=== PATIENT | male | born 1965 | race Caucasian/White ===

== ENCOUNTER 2024-04-12 08:36 | Outpatient (CLI) | payer OTHER, SELFPAY ==
--- NOTE | ~2024-04-12 | US_ITS ---
Limited Abdominal Sonogram: Real-time sonographic imaging of the right upper quadrant was performed. Clinical History: Abdominal pain Findings: The liver appears echogenic, with no evidence of mass lesion or bile duct dilatation. Main portal vein demonstrates normal direction of flow. The gallbladder is well distended, and appears no rmal with no evidence of gallstone or wall thickening. The common bile duct measures 5 mm. The visua lized pancreas, aorta, and IVC are unremarkable. Right renal cyst noted measuring 2.9 cm per Impression: Diffuse fatty infiltration of liver. Reviewed, dictated and finalized at location . Impression: Diffuse fatty infiltration of liver.
== END 2024-04-12 08:37 | disposition home or self-care (01) ==
PROVIDERS: PCP Nurse Practitioner Family; Visit Provider Nurse Practitioner Family
DX: R10.11 Right upper quadrant pain (principal); K76.0 Fatty (change of) liver, not elsewhere classified
CPT/HCPCS: 76705

== ENCOUNTER 2024-11-10 08:44 | Emergency (ER) | payer BC, SELFPAY ==
--- NOTE | ~2024-11-10 | XR_ITS ---
EXAMINATION: XR foot RT min 3V DATE: 11/10/2024 09:45 INDICATION: Right foot swelling and erythema around the dose TECHNIQUE: Dorsoplantar, two oblique and lateral views of the right foot were obtained. COMPARISON: None. FINDINGS: Mild hallux valgus and bunion with mild hypertrophic and cystic change along the medial margin of the head of the first metatarsal. Bone alignment is otherwise normal. No fracture. Mild polyarticular os teoarthritis involving the first metatarsophalangeal and multiple tarsometatarsal and interphalangeal joints. No cortical erosions or periosteal reaction. Moderate-sized Achilles and plantar calcaneal s purs. Diffuse soft tissue swelling about the forefoot and over the dorsolateral aspect of the mid and hindfoot. IMPRESSION: 1. No acute osseous abnormality. 2. Mild hallux valgus with bunion. 3. 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 Reviewed, dictated and finalized at location A.
[2024-11-10 08:55] VITALS: BP 144/98; PULSE 74; RESP 18; TEMP 36.4; O2SAT 98
--- OUTSIDE RECORDS SUMMARY | 2024-11-10 09:23 | XMS_ITS | Data Portability ---
Author Organization [place] [facility], Main Office Address [address] [place] [address] Assessment Encounter Date Assessment Date Assessment LastModified by Organization Details LastModified Time 03/05/2023 03/05/2023 Cscope- in 2014, we have requested records multiple times but they have not sent them- per pt he is due in 2024 PSA- 08/2021 - ordered Call office if worse, ER if life threatening illness RTC 6 months and PRN He voices understanding of plan and agrees [email or web address] Not available 03/05/2023 16:47:18 Plan of Treatment Reminders Order Date Submit Date Provider Last Modified By Organization Details Last Modified Time Details Appointments None recorded. Lab PSA, serum or plasma 2022 023 [email or web address] [facility], [address], [place], [address], 4 08:40:02 CBC w/ auto diff 2022 023 [email or web address] [facility], [address], [place], [address], 4 08:40:02 CMP, serum or plasma 2022 023 [email or web address] [facility], [address], [place], [address], 4 08:40:02 lipid panel, serum 2022 023 [email or web address] [facility], [address], [place], [address], 4 08:40:02 Referral None recorded. Procedures None recorded. Surgeries None recorded. Imaging None recorded. Medication Orders losartan 50 mg tablet 2022 023 [facility] [address] [place], [address], 3 15:04:33 hydrochloro thiazide 25 mg tablet 2022 023 [facility] [address] [place], [address], 3 15:04:35 Patient TargetsNo targets recorded. Patient InstructionsNo instructions recorded. Reason for Referral None Reported. Results Created Date Observation Date Name Description Value Unit Range Abnormal Flag Note LastModifiedBy Organization Detail LastModifiedTime 09/13/19 22 09/12/2021 VITAM IN D 25-HY DROXY vd25oh 51.0 NG/mL 30-100 Vitam in D Statu s: Defic ient: <20 ng/mL Insuf ficie nt: 20-29 ng/mL Suffi cient : 30-10 0 ng/mL Not Available [facility] (Lab) [address] [place], [address], 09/12/2021 21:35:09 09/13/19 22 09/12/2021 HEMOG LOBIN A1C HA1C 5.6 % 4.0-6. 0 Diabe fidel Scree masha Crite gely: <5.7% Consi stent with absen ce of diabe fidel 5.7-6 .4% Consi stent with incre ased risk for diabe fidel (pred iabet es) >OR=6 .5% Consi stent with diabe fidel REFER ENCE: Diabe fidel Care 2016, 39(Hilliard ppl.1 ):s13 -s22 Not Available [facility] (Lab) [address] [place], [address], 09/12/2021 20:21:45 09/13/19 22 09/12/2021 PSA SCREE N PSA medicare screen 1.13 NG/mL 0.00-4 .00 Not Available [facility] (Lab) [address] [place], [address], 09/12/2021 19:55:50 09/13/1909/12/2021 TSH thyroid-stim ulating hormone 1.400 uIU/m L 0.465- 4.680 Not Available [facility] (Lab) [address] [place], [address], 09/12/2021 19:55:42 09/13/1909/12/2021 T4 FREE free T4 1.12 NG/dL 0.78-2 .19 Not Available [facility] (Lab) [address] [place], [address], 09/12/2021 19:52:32 09/13/19 22 09/12/2021 LIPID PANEL cholesterol 174 mg/dL 140-19 9 NIH GELACIO NSUS RECOM MENDA TION FOR ROBERT STERO L: ADULT CHILD LOW RISK: <200 <170 BORDE RLINE : <200- 239 ----- HIGH RISK: >240 >200 Not Available [facility] (Lab) [address] [place], [address], 09/12/2021 19:15:19 09/13/1909/12/2021 LIPID PANEL triglyceride s 113 mg/dL 0-150 NIH GELACIO NSUS REPOR T RECOM MENDA TION FOR TRIGL YCERI ANA CRISTINA: ADULT CHILD LOW RISK: <150 ----- BODER LINE: 150-1 99 ----- HIGH RISK: >200 ----- Not Available [facility] (Lab) [address] [place], [address], 09/12/2021 19:15:19 09/13/1909/12/2021 LIPID PANEL HDL cholesterol 54 mg/dL 40- Not Available [facility] (Lab) [address] [place], [address], 09/12/2021 19:15:19 09/13/19 22 09/12/2021 LIPID PANEL LDL cholesterol, calculated 97 mg/dL 0-130 NIH GELACIO NSUS REPOR T RECOM MENDA TIONS FOR LDL: ADULT CHILD LOW RISK <130 <110 (OPTI MAL LDL) <100 ----- BORDE RLINE : 130-1 59 ----- HIGH RISK: >160 >130 A TRIGL YCERI DE RESUL T >400 INVAL IDATE S THE CALCU LATIO N FOR LDL FRACT IONAT ION - THE LDL RESUL T WILL NOT BE REPOR AMI. Not Available [facility] (Lab) [address] [place], [address], 09/12/2021 19:15:19 09/13/19 22 09/12/2021 COMPR EHENS MAINE METAB OLIC PANEL sodium 137 mmol/ L 137-14 5 Not Available [facility] (Lab) [address] [place], [address], 09/12/2021 19:15:17 09/13/19 22 09/12/2021 COMPR EHENS MAINE METAB OLIC PANEL potassium 4.0 mmol/ L 3.5-5. 1 Not Available [facility] (Lab) [address] [place], [address], 09/12/2021 19:15:17 09/13/19 22 09/12/2021 COMPR EHENS MAINE METAB OLIC PANEL chloride 101 mmol/ L 98-107 Not Available [facility] (Lab) [address] [place], [address], 09/12/2021 19:15:17 09/13/19 22 09/12/2021 COMPR EHENS MAINE METAB OLIC PANEL carbon dioxide 26 mmol/ L 22-30 Not Available [facility] (Lab) [address] [place], [address], 09/12/2021 19:15:17 09/13/19 22 09/12/2021 COMPR EHENS MAINE METAB OLIC PANEL agap 14.0 mmol/ L 14-22 Not Available [facility] (Lab) [address] [place], [address], 09/12/2021 19:15:17 09/13/19 22 09/12/2021 COMPR EHENS MAINE METAB OLIC PANEL glucose 103 mg/dL 70-99 high Not Available [facility] (Lab) [address] [place], [address], 09/12/2021 19:15:17 09/13/19 22 09/12/2021 COMPR EHENS MAINE METAB OLIC PANEL BUN 12 mg/dL 8-19 Not Available [facility] (Lab) [address] [place], [address], 09/12/2021 19:15:17 09/13/19 22 09/12/2021 COMPR EHENS MAINE METAB OLIC PANEL creatinine 0.78 mg/dL 0.66-1 .25 Not Available [facility] (Lab) [address] [place], [address], 09/12/2021 19:15:17 09/13/19 22 09/12/2021 COMPR EHENS MAINE METAB OLIC PANEL GFR >60 Refer ence Range : [facility] ge GFR Healt hy Adult : >60 mL/mi n/1.7 3 m2 Chron ic Kidne y Disea se: 15-60 mL/mi n/1.7 3 m2 Kidne y Failu re: <15/m L/min /1.73 m2 www.n iddk. nih.g ov The MDRD study equat ion has not been valid ated in child soy <18 years of age; pregn ant women ; the elder ly >85 years of age; or in some racia l or ethni c subgr oups, such as Hispa nics. Outsi de the valid ated vamsi eters , estim ated GFR is less accur ate, requi ring clini joyce judgm ent on a case- by-ca se basis . Clini joyce inter preta tion for other races and ages must be made by the clini sharifa. The MDRD study equat ion has not been valid ated for the evalu ation of serum creat inine relat ed to nutri radha l statu s or medic ation usage . For perso ns <18 years of age, a pedia tric GFR calcu latmarck is avail able on the [facility] websi te: https ://guillermo gomez.o rg/pr ofess ional s/kdo qi/gf r_cal culat or Not Available [facility] (Lab) [address] [place], [address], 09/12/2021 19:15:17 09/13/19 22 09/12/2021 COMPR EHENS MAINE METAB OLIC PANEL alkaline phosphatase 47 U/L 38-126 Not Available [facility] (Lab) [address] [place], [address], 09/12/2021 19:15:17 09/13/19 22 09/12/2021 COMPR EHENS MAINE METAB OLIC PANEL alanine aminotransfe rase 29 U/L 0-50 Not Available [facility] (Lab) [address] [place], [address], 09/12/2021 19:15:17 09/13/19 22 09/12/2021 COMPR EHENS MAINE METAB OLIC PANEL aspartate aminotransfe rase 37 U/L 15-46 Not Available [facility] (Lab) [address] [place], [address], 09/12/2021 19:15:17 09/13/19 22 09/12/2021 COMPR EHENS MAINE METAB OLIC PANEL bilirubin, total 0.80 mg/dL 0.20-1 .30 Not Available [facility] (Lab) [address] [place], [address], 09/12/2021 19:15:17 09/13/19 22 09/12/2021 COMPR EHENS MAINE METAB OLIC PANEL calcium 9.8 mg/dL 8.4-10 .2 Not Available [facility] (Lab) [address] [place], [address], 09/12/2021 19:15:17 09/13/19 22 09/12/2021 COMPR EHENS MAINE METAB OLIC PANEL total protein 7.6 g/dL 6.3-8. 2 Not Available [facility] (Lab) [address] [facility] [place], [address], 09/12/2021 19:15:17 09/13/19 22 09/12/2021 COMPR EHENS MAINE METAB OLIC PANEL albumin 4.9 g/dL 3.4-5. 0 Not Available [facility] (Lab) [address] [place], [address], 09/12/2021 19:15:17 09/13/19 22 09/12/2021 COMPR EHENS MAINE METAB OLIC PANEL globulin 2.7 g/dL 2.6-4. 2 Not Available [facility] (Lab) [address] [place], [address], 09/12/2021 19:15:17 09/13/19 22 09/12/2021 COMPR EHENS MAINE METAB OLIC PANEL A/G ratio 1.8 ratio 1.0-2. 0 Not Available [facility] (Lab) [address] [place], [address], 09/12/2021 19:15:17 09/13/19 22 09/12/2021 URINA LYSIS COMPL ETE/I RIS W/RFX color colorl ess Not Available [facility] (Lab) [address] [place], [address], 09/12/2021 18:46:24 09/13/19 22 09/12/2021 URINA LYSIS COMPL ETE/I RIS W/RFX appear clear Not Available [facility] (Lab) [address] [place], [address], 09/12/2021 18:46:24 09/13/19 22 09/12/2021 URINA LYSIS COMPL ETE/I RIS W/RFX specific gravity 1.004 1.001- 1.030 Not Available [facility] (Lab) [address] [place], [address], 09/12/2021 18:46:24 09/13/19 22 09/12/2021 URINA LYSIS COMPL ETE/I RIS W/RFX pH 7.0 pH_un its 5.0-9. 0 Not Available [facility] (Lab) [address] [place], [address], 09/12/2021 18:46:24 09/13/19 22 09/12/2021 URINA LYSIS COMPL ETE/I RIS W/RFX leukocytes negati ve amrit/u L negati ve- Not Available [facility] (Lab) [address] [place], [address], 09/12/2021 18:46:24 09/13/19 22 09/12/2021 URINA LYSIS COMPL ETE/I RIS W/RFX nitrite negati ve negati ve- Not Available [facility] (Lab) [address] [place], [address], 09/12/2021 18:46:24 09/13/19 22 09/12/2021 URINA LYSIS COMPL ETE/I RIS W/RFX protein negati ve mg/dL negati ve- Not Available [facility] (Lab) [address] [place], [address], 09/12/2021 18:46:24 09/13/19 22 09/12/2021 URINA LYSIS COMPL ETE/I RIS W/RFX glucose normal mg/dL normal - Not Available [facility] (Lab) [address] [place], [address], 09/12/2021 18:46:24 09/13/19 22 09/12/2021 URINA LYSIS COMPL ETE/I RIS W/RFX ketones negati ve mg/dL negati ve- Not Available [facility] (Lab) [address] [place], [address], 09/12/2021 18:46:24 09/13/19 22 09/12/2021 URINA LYSIS COMPL ETE/I RIS W/RFX urobilinogen normal mg/dL normal - Not Available [facility] (Lab) [address] [place], [address], 09/12/2021 18:46:24 09/13/19 22 09/12/2021 URINA LYSIS COMPL ETE/I RIS W/RFX bilirubin negati ve mg/dL negati ve- Not Available [facility] (Lab) [address] [place], [address], 09/12/2021 18:46:24 09/13/19 22 09/12/2021 URINA LYSIS COMPL ETE/I RIS W/RFX blood negati ve mg/dL negati ve- Not Available [facility] (Lab) [address] [place], [address], 09/12/2021 18:46:24 09/13/19 22 09/12/2021 URINA LYSIS COMPL ETE/I RIS W/RFX white blood cells none /i??h pfi?? 0-8 Not Available [facility] (Lab) [address] [place], [address], 09/12/2021 18:46:24 09/13/19 22 09/12/2021 URINA LYSIS COMPL ETE/I RIS W/RFX red blood cells none /i??h pfi?? 0-4 Not Available [facility] (Lab) [address] [place], [address], 09/12/2021 18:46:24 09/13/19 22 09/12/2021 URINA LYSIS COMPL ETE/I RIS W/RFX bacteria none Not Available [facility] (Lab) [address] [place], [address], 09/12/2021 18:46:24 09/13/19 22 09/12/2021 URINA LYSIS COMPL ETE/I RIS W/RFX squamous epithelial none /i??l pfi?? Not Available [facility] (Lab) [address] [place], [address], 09/12/2021 18:46:24 09/13/19 22 09/12/2021 CBC/C OMPLE TE BLD COUNT W/DIF F white blood cells 5.9 x10'3 /uL 4.2-10 .8 Not Available [facility] (Lab) [address] [place], [address], 09/12/2021 18:30:34 09/13/19 22 09/12/2021 CBC/C OMPLE TE BLD COUNT W/DIF F red blood cells 5.56 x10'6 /uL 4.10-5 .80 Not Available [facility] (Lab) [address] [place], [address], 09/12/2021 18:30:34 09/13/19 22 09/12/2021 CBC/C OMPLE TE BLD COUNT W/DIF F hemoglobin 16.5 g/dL 13.2-1 7.0 Not Available [facility] (Lab) [address] [place], [address], 09/12/2021 18:30:34 09/13/19 22 09/12/2021 CBC/C OMPLE TE BLD COUNT W/DIF F hematocrit 47.5 % 39.3-5 0.0 Not Available [facility] (Lab) [address] [place], [address], 09/12/2021 18:30:34 09/13/19 22 09/12/2021 CBC/C OMPLE TE BLD COUNT W/DIF F mean red cell volume 85.4 fL 80.0-9 7.0 Not Available [facility] (Lab) [address] [place], [address], 09/12/2021 18:30:34 09/13/19 22 09/12/2021 CBC/C OMPLE TE BLD COUNT W/DIF F mean red cell hemoglobin 29.7 pg 27.0-3 3.0 Not Available [facility] (Lab) [address] [place], [address], 09/12/2021 18:30:34 09/13/19 22 09/12/2021 CBC/C OMPLE TE BLD COUNT W/DIF F mean RBC HGB concentratio n 34.7 g/dL 31.0-3 6.0 Not Available [facility] (Lab) [address] [place], [address], 09/12/2021 18:30:34 09/13/19 22 09/12/2021 CBC/C OMPLE TE BLD COUNT W/DIF F red cell distribution width 13.0 % 11.8-1 5.5 Not Available [facility] (Lab) [address] [place], [address], 09/12/2021 18:30:34 09/13/19 22 09/12/2021 CBC/C OMPLE TE BLD COUNT W/DIF F platelets 248 x10'3 /uL 150-40 0 Not Available [facility] (Lab) [address] [place], [address], 09/12/2021 18:30:34 09/13/19 22 09/12/2021 CBC/C OMPLE TE BLD COUNT W/DIF F mean platelet volume 9.2 fL 9.0-12 .4 Not Available [facility] (Lab) [address] [place], [address], 09/12/2021 18:30:34 09/13/19 22 09/12/2021 CBC/C OMPLE TE BLD COUNT W/DIF F neutrophils 55.7 % 39.0-7 2.0 Not Available [facility] (Lab) [address] [place], [address], 09/12/2021 18:30:34 09/13/19 22 09/12/2021 CBC/C OMPLE TE BLD COUNT W/DIF F lymphocytes 28.8 % 16.0-4 7.0 Not Available [facility] (Lab) [address] [place], [address], 09/12/2021 18:30:34 09/13/19 22 09/12/2021 CBC/C OMPLE TE BLD COUNT W/DIF F monocytes 10.5 % 5.0-12 .0 Not Available [facility] (Lab) [address] [place], [address], 09/12/2021 18:30:34 09/13/19 22 09/12/2021 CBC/C OMPLE TE BLD COUNT W/DIF F eosinophils 3.4 % 1.0-7. 0 Not Available [facility] (Lab) [address] [place], [address], 09/12/2021 18:30:34 09/13/19 22 09/12/2021 CBC/C OMPLE TE BLD COUNT W/DIF F basophils 1.4 % 0.0-2. 0 Not Available [facility] (Lab) [address] [place], [address], 09/12/2021 18:30:34 09/13/19 22 09/12/2021 CBC/C OMPLE TE BLD COUNT W/DIF F immature granulocytes 0.2 % 0.00-0 .50 Not Available [facility] (Lab) [address] [place], [address], 09/12/2021 18:30:34 09/13/19 22 09/12/2021 CBC/C OMPLE TE BLD COUNT W/DIF F neutrophils, absolute count 3.29 x10'3 /uL 1.5-8. 0 Not Available [facility] (Lab) [address] [place], [address], 09/12/2021 18:30:34 09/13/19 22 09/12/2021 CBC/C OMPLE TE BLD COUNT W/DIF F lymphocytes, absolute count 1.70 x10'3 /uL 1.07-3 .43 Not Available [facility] (Lab) [address] [place], [address], 09/12/2021 18:30:34 09/13/19 22 09/12/2021 CBC/C OMPLE TE BLD COUNT W/DIF F monocytes, absolute count 0.62 x10'3 /uL 0.29-0 .99 Not Available [facility] (Lab) [address] [place], [address], 09/12/2021 18:30:34 09/13/19 22 09/12/2021 CBC/C OMPLE TE BLD COUNT W/DIF F eosinophils, absolute count 0.20 x10'3 /uL 0.02-0 .53 Not Available [facility] (Lab) [address] [place], [address], 09/12/2021 18:30:34 09/13/19 22 09/12/2021 CBC/C OMPLE TE BLD COUNT W/DIF F basophils, absolute count 0.08 x10'3 /uL 0.01-0 .08 Not Available [facility] (Lab) [address] [place], [address], 09/12/2021 18:30:34 09/13/19 22 09/12/2021 CBC/C OMPLE TE BLD COUNT W/DIF F immature granulocytes ,absolute 0.01 x10'3 /uL 0.00-0 .05 Not Available [facility] (Lab) [address] [place], [address], 09/12/2021 18:30:34 09/13/19 22 09/12/2021 CBC/C OMPLE TE BLD COUNT W/DIF F nucleated red blood cells 0.0 % -0 Not Available [facility] (Lab) [address] [place], [address], 09/12/2021 18:30:34 09/13/19 22 09/12/2021 CBC/C OMPLE TE BLD COUNT W/DIF F NRBC# 0.00 x10'3 /uL Not Available [facility] (Lab) [address] [place], [address], 09/12/2021 18:30:34 08/07/19 23 08/07/2022 FOLAT E, SERUM /PLAS MA folate 8.42 NG/mL 2.76-2 0.0 Not Available [facility] (Lab) [address] [place], [address], 08/07/2022 15:44:23 08/07/1908/07/2022 VITAM IN B12 (KIT ANDREE ) vb12 229 pg/mL 239-93 1 low Not Available [facility] (Lab) [address] [place], [address], 08/07/2022 15:44:17 08/07/1908/07/2022 VITAM IN D 25-HY DROXY vd25oh 33.8 NG/mL 30-100 Vitam in D Statu s: Defic ient: <20 ng/mL Insuf ficie nt: 20-29 ng/mL Suffi cient : 30-10 0 ng/mL Not Available [facility] (Lab) [address] [place], [address], 08/07/2022 15:43:47 08/07/1908/07/2022 HEMOG LOBIN A1C HA1C 6.4 % 4.0-6. 0 high Diabe fidel Keniae masha Crite gely: <5.7% Consi stent with absen ce of diabe fidel 5.7-6 .4% Consi stent with incre ased risk for diabe fidel (pred iabet es) >OR=6 .5% Consi stent with diabe fidel REFER ENCE: Diabe fidel Care 2016, 39(Hilliard ppl.1 ):s13 -s22 Not Available [facility] (Lab) [address] [place], [address], 08/07/2022 15:24:26 08/07/19 23 08/07/2022 TSH thyroid-stim ulating hormone 1.470 uIU/m L 0.465- 4.680 Not Available [facility] (Lab) [address] [place], [address], 08/07/2022 14:32:39 08/07/19 23 08/07/2022 URINA LYSIS COMPL ETE/I RIS W/RFX color light- yellow Not Available [facility] (Lab) [address] [place], [address], 08/07/2022 14:20:51 08/07/19 23 08/07/2022 URINA LYSIS COMPL ETE/I RIS W/RFX appear clear Not Available [facility] (Lab) [address] [place], [address], 08/07/2022 14:20:51 08/07/19 23 08/07/2022 URINA LYSIS COMPL ETE/I RIS W/RFX specific gravity 1.012 1.001- 1.030 Not Available [facility] (Lab) [address] [place], [address], 08/07/2022 14:20:51 08/07/19 23 08/07/2022 URINA LYSIS COMPL ETE/I RIS W/RFX pH 6.0 pH_un its 5.0-9. 0 Not Available [facility] (Lab) [address] [place], [address], 08/07/2022 14:20:51 08/07/19 23 08/07/2022 URINA LYSIS COMPL ETE/I RIS W/RFX leukocytes negati ve amrit/u L negati ve- Not Available [facility] (Lab) [address] [place], [address], 08/07/2022 14:20:51 08/07/19 23 08/07/2022 URINA LYSIS COMPL ETE/I RIS W/RFX nitrite negati ve negati ve- Not Available [facility] (Lab) [address] [place], [address], 08/07/2022 14:20:51 08/07/19 23 08/07/2022 URINA LYSIS COMPL ETE/I RIS W/RFX protein negati ve mg/dL negati ve- Not Available [facility] (Lab) [address] [place], [address], 08/07/2022 14:20:51 08/07/19 23 08/07/2022 URINA LYSIS COMPL ETE/I RIS W/RFX glucose normal mg/dL normal - Not Available [facility] (Lab) [address] [place], [address], 08/07/2022 14:20:51 08/07/19 23 08/07/2022 URINA LYSIS COMPL ETE/I RIS W/RFX ketones negati ve mg/dL negati ve- Not Available [facility] (Lab) [address] [place], [address], 08/07/2022 14:20:51 08/07/19 23 08/07/2022 URINA LYSIS COMPL ETE/I RIS W/RFX urobilinogen normal mg/dL normal - Not Available [facility] (Lab) [address] [place], [address], 08/07/2022 14:20:51 08/07/19 23 08/07/2022 URINA LYSIS COMPL ETE/I RIS W/RFX bilirubin negati ve mg/dL negati ve- Not Available [facility] (Lab) [address] [place], [address], 08/07/2022 14:20:51 08/07/19 23 08/07/2022 URINA LYSIS COMPL ETE/I RIS W/RFX blood negati ve mg/dL negati ve- Not Available [facility] (Lab) [address] [place], [address], 08/07/2022 14:20:51 08/07/19 23 08/07/2022 URINA LYSIS COMPL ETE/I RIS W/RFX white blood cells 0-8 /i??h pfi?? 0-8 Not Available [facility] (Lab) [address] [place], [address], 08/07/2022 14:20:51 08/07/19 23 08/07/2022 URINA LYSIS COMPL ETE/I RIS W/RFX red blood cells 0-4 /i??h pfi?? 0-4 Not Available [facility] (Lab) [address] [place], [address], 08/07/2022 14:20:51 08/07/19 23 08/07/2022 URINA LYSIS COMPL ETE/I RIS W/RFX bacteria none Not Available [facility] (Lab) [address] [place], [address], 08/07/2022 14:20:51 08/07/19 23 08/07/2022 URINA LYSIS COMPL ETE/I RIS W/RFX mucous occasi onal /i??l pfi?? abnormal Not Available [facility] (Lab) [address] [place], [address], 08/07/2022 14:20:51 08/07/19 23 08/07/2022 URINA LYSIS COMPL ETE/I RIS W/RFX squamous epithelial none /i??l pfi?? abnormal Not Available [facility] (Lab) [address] [place], [address], 08/07/2022 14:20:51 08/07/19 23 08/07/2022 T4 FREE free T4 1.05 NG/dL 0.78-2 .19 Not Available [facility] (Lab) [address] [place], [address], 08/07/2022 14:18:44 08/07/19 23 08/07/2022 MAGNE SIUM magnesium 1.9 mg/dL 1.6-2. 3 Not Available [facility] (Lab) [address] [place], [address], 08/07/2022 14:04:19 08/07/19 23 08/07/2022 LIPID PANEL cholesterol 174 mg/dL 140-19 9 NIH GELACIO NSUS RECOM MENDA TION FOR ROBERT STERO L: ADULT CHILD LOW RISK: <200 <170 BORDE RLINE : <200- 239 ----- HIGH RISK: >240 >200 Not Available [facility] (Lab) [address] [place], [address], 08/07/2022 14:04:15 08/07/19 23 08/07/2022 LIPID PANEL triglyceride s 239 mg/dL 0-150 high NIH GELACIO NSUS REPOR T RECOM MENDA TION FOR TRIGL YCERI ANA CRISTINA: ADULT CHILD LOW RISK: <150 ----- BODER LINE: 150-1 99 ----- HIGH RISK: >200 ----- Not Available [facility] (Lab) [address] [place], [address], 08/07/2022 14:04:15 08/07/19 23 08/07/2022 LIPID PANEL HDL cholesterol 51 mg/dL 40- Not Available [facility] (Lab) [address] [facility] [place], [address], 08/07/2022 14:04:15 08/07/19 23 08/07/2022 LIPID PANEL LDL cholesterol, calculated 75 mg/dL 0-130 NIH GELACIO NSUS REPOR T RECOM MENDA TIONS FOR LDL: ADULT CHILD LOW RISK <130 <110 (OPTI MAL LDL) <100 ----- BORDE RLINE : 130-1 59 ----- HIGH RISK: >160 >130 A TRIGL YCERI DE RESUL T >400 INVAL IDATE S THE CALCU LATIO N FOR LDL FRACT IONAT ION - THE LDL RESUL T WILL NOT BE REPOR AMI. Not Available [facility] (Lab) [address] [place], [address], 08/07/2022 14:04:15 08/07/19 23 08/07/2022 COMPR EHENS MAINE METAB OLIC PANEL sodium 139 mmol/ L 137-14 5 Not Available [facility] (Lab) [address] [place], [address], 08/07/2022 14:04:07 08/07/19 23 08/07/2022 COMPR EHENS MAINE METAB OLIC PANEL potassium 4.0 mmol/ L 3.5-5. 1 Not Available [facility] (Lab) [address] [place], [address], 08/07/2022 14:04:07 08/07/19 23 08/07/2022 COMPR EHENS MAINE METAB OLIC PANEL chloride 102 mmol/ L 98-107 Not Available [facility] (Lab) [address] [place], [address], 08/07/2022 14:04:07 08/07/19 23 08/07/2022 COMPR EHENS MAINE METAB OLIC PANEL carbon dioxide 27 mmol/ L 22-30 Not Available [facility] (Lab) [address] [place], [address], 08/07/2022 14:04:07 08/07/19 23 08/07/2022 COMPR EHENS MAINE METAB OLIC PANEL anion gap 14.0 mmol/ L 14-22 Not Available [facility] (Lab) [address] [place], [address], 08/07/2022 14:04:07 08/07/19 23 08/07/2022 COMPR EHENS MAINE METAB OLIC PANEL glucose 133 mg/dL 70-99 high Not Available [facility] (Lab) [address] [place], [address], 08/07/2022 14:04:07 08/07/19 23 08/07/2022 COMPR EHENS MAINE METAB OLIC PANEL BUN 14 mg/dL 8-19 Not Available [facility] (Lab) [address] [place], [address], 08/07/2022 14:04:07 08/07/19 23 08/07/2022 COMPR EHENS MAINE METAB OLIC PANEL creatinine 0.81 mg/dL 0.66-1 .25 Not Available [facility] (Lab) [address] [place], [address], 08/07/2022 14:04:07 08/07/19 23 08/07/2022 COMPR EHENS MAINE METAB OLIC PANEL GFR >60 Refer ence Range : [facility] ge GFR Healt hy Adult : >60 mL/mi n/1.7 3 m2 Chron ic Kidne y Disea se: 15-60 mL/mi n/1.7 3 m2 Kidne y Failu re: <15/m L/min /1.73 m2 [email or web address].g ov The MDRD study equat ion has not been valid ated in child soy <18 years of age; pregn ant women ; the elder ly >85 years of age; or in some racia l or ethni c subgr oups, such as Hispa nics. Outsi de the valid ated vamsi eters , estim ated GFR is less accur ate, requi ring clini joyce judgm ent on a case- by-ca se basis . Clini joyce inter preta tion for other races and ages must be made by the clini sharifa. The MDRD study equat ion has not been valid ated for the evalu ation of serum creat inine relat ed to nutri radha l statu s or medic ation usage . For perso ns <18 years of age, a pedia tric GFR calcu lator is avail able on the [facility] websi te: https ://ww w.kid patricia.o rg/pr ofess ional s/kdo qi/gf r_cal culat or Not Available [facility] (Lab) [address] [place], [address], 08/07/2022 14:04:07 08/07/19 23 08/07/2022 COMPR EHENS MAINE METAB OLIC PANEL alkaline phosphatase 55 U/L 38-126 Not Available [facility] (Lab) [address] [place], [address], 08/07/2022 14:04:07 08/07/19 23 08/07/2022 COMPR EHENS MAINE METAB OLIC PANEL alanine aminotransfe rase 37 U/L 0-50 Not Available [facility] (Lab) [address] [place], [address], 08/07/2022 14:04:07 08/07/19 23 08/07/2022 COMPR EHENS MAINE METAB OLIC PANEL aspartate aminotransfe rase 34 U/L 15-46 Not Available [facility] (Lab) [address] [place], [address], 08/07/2022 14:04:07 08/07/19 23 08/07/2022 COMPR EHENS MAINE METAB OLIC PANEL bilirubin, total 0.70 mg/dL 0.20-1 .30 Not Available [facility] (Lab) [address] [place], [address], 08/07/2022 14:04:07 08/07/19 23 08/07/2022 COMPR EHENS MAINE METAB OLIC PANEL calcium 9.2 mg/dL 8.4-10 .2 Not Available [facility] (Lab) [address] [place], [address], 08/07/2022 14:04:07 08/07/19 23 08/07/2022 COMPR EHENS MAINE METAB OLIC PANEL total protein 7.1 g/dL 6.3-8. 2 Not Available [facility] (Lab) [address] [place], [address], 08/07/2022 14:04:07 08/07/19 23 08/07/2022 COMPR EHENS MAINE METAB OLIC PANEL albumin 4.5 g/dL 3.4-5. 0 Not Available [facility] (Lab) [address] [place], [address], 08/07/2022 14:04:07 08/07/19 23 08/07/2022 COMPR EHENS MAINE METAB OLIC PANEL globulin 2.6 g/dL 2.6-4. 2 Not Available [facility] (Lab) [address] [place], [address], 08/07/2022 14:04:07 08/07/19 23 08/07/2022 COMPR EHENS MAINE METAB OLIC PANEL A/G ratio 1.7 ratio 1.0-2. 0 Not Available [facility] (Lab) [address] [place], [address], 08/07/2022 14:04:07 08/07/19 23 08/07/2022 CBC/C OMPLE TE BLD COUNT W/DIF F white blood cells 5.8 x10'3 /uL 4.2-10 .8 Not Available [facility] (Lab) [address] [place], [address], 08/07/2022 12:48:22 02/15/20 23 08/07/2022 CBC/C OMPLE TE BLD COUNT W/DIF F red blood cells 5.35 x10'6 /uL 4.10-5 .80 Not Available [facility] (Lab) [address] [place], [address], 08/07/2022 12:48:22 08/07/19 23 08/07/2022 CBC/C OMPLE TE BLD COUNT W/DIF F hemoglobin 15.8 g/dL 13.2-1 7.0 Not Available [facility] (Lab) [address] [place], [address], 08/07/2022 12:48:22 08/07/19 23 08/07/2022 CBC/C OMPLE TE BLD COUNT W/DIF F hematocrit 47.1 % 39.3-5 0.0 Not Available [facility] (Lab) [address] [place], [address], 08/07/2022 12:48:22 08/07/19 23 08/07/2022 CBC/C OMPLE TE BLD COUNT W/DIF F mean red cell volume 88.0 fL 80.0-9 7.0 Not Available [facility] (Lab) [address] [place], [address], 08/07/2022 12:48:22 08/07/19 23 08/07/2022 CBC/C OMPLE TE BLD COUNT W/DIF F mean red cell hemoglobin 29.5 pg 27.0-3 3.0 Not Available [facility] (Lab) [address] [place], [address], 08/07/2022 12:48:22 08/07/19 23 08/07/2022 CBC/C OMPLE TE BLD COUNT W/DIF F mean RBC HGB concentratio n 33.5 g/dL 31.0-3 6.0 Not Available [facility] (Lab) [address] [place], [address], 08/07/2022 12:48:22 08/07/19 23 08/07/2022 CBC/C OMPLE TE BLD COUNT W/DIF F red cell distribution width 12.6 % 11.8-1 5.5 Not Available [facility] (Lab) [address] [place], [address], 08/07/2022 12:48:22 08/07/19 23 08/07/2022 CBC/C OMPLE TE BLD COUNT W/DIF F platelets 242 x10'3 /uL 150-40 0 Not Available [facility] (Lab) [address] [place], [address], 08/07/2022 12:48:22 08/07/19 23 08/07/2022 CBC/C OMPLE TE BLD COUNT W/DIF F mean platelet volume 8.9 fL 9.0-12 .4 low Not Available [facility] (Lab) [address] [place], [address], 08/07/2022 12:48:22 08/07/19 23 08/07/2022 CBC/C OMPLE TE BLD COUNT W/DIF F neutrophils 57.4 % 39.0-7 2.0 Not Available [facility] (Lab) [address] [place], [address], 08/07/2022 12:48:22 08/07/19 23 08/07/2022 CBC/C OMPLE TE BLD COUNT W/DIF F lymphocytes 27.7 % 16.0-4 7.0 Not Available [facility] (Lab) [address] [place], [address], 08/07/2022 12:48:22 08/07/19 23 08/07/2022 CBC/C OMPLE TE BLD COUNT W/DIF F monocytes 9.6 % 5.0-12 .0 Not Available [facility] (Lab) [address] [place], [address], 08/07/2022 12:48:22 08/07/19 23 08/07/2022 CBC/C OMPLE TE BLD COUNT W/DIF F eosinophils 4.0 % 1.0-7. 0 Not Available [facility] (Lab) [address] [place], [address], 08/07/2022 12:48:22 08/07/19 23 08/07/2022 CBC/C OMPLE TE BLD COUNT W/DIF F basophils 1.0 % 0.0-2. 0 Not Available [facility] (Lab) [address] [place], [address], 08/07/2022 12:48:22 08/07/19 23 08/07/2022 CBC/C OMPLE TE BLD COUNT W/DIF F immature granulocytes 0.3 % 0.00-0 .50 Not Available [facility] (Lab) [address] [place], [address], 08/07/2022 12:48:22 08/07/19 23 08/07/2022 CBC/C OMPLE TE BLD COUNT W/DIF F neutrophils, absolute count 3.34 x10'3 /uL 1.5-8. 0 Not Available [facility] (Lab) [address] [place], [address], 08/07/2022 12:48:22 08/07/19 23 08/07/2022 CBC/C OMPLE TE BLD COUNT W/DIF F lymphocytes, absolute count 1.61 x10'3 /uL 1.07-3 .43 Not Available [facility] (Lab) [address] [place], [address], 08/07/2022 12:48:22 08/07/19 23 08/07/2022 CBC/C OMPLE TE BLD COUNT W/DIF F monocytes, absolute count 0.56 x10'3 /uL 0.29-0 .99 Not Available [facility] (Lab) [address] [place], [address], 08/07/2022 12:48:22 08/07/19 23 08/07/2022 CBC/C OMPLE TE BLD COUNT W/DIF F eosinophils, absolute count 0.23 x10'3 /uL 0.02-0 .53 Not Available [facility] (Lab) [address] [place], [address], 08/07/2022 12:48:22 08/07/19 23 08/07/2022 CBC/C OMPLE TE BLD COUNT W/DIF F basophils, absolute count 0.06 x10'3 /uL 0.01-0 .08 Not Available [facility] (Lab) [address] [place], [address], 08/07/2022 12:48:22 08/07/19 23 08/07/2022 CBC/C OMPLE TE BLD COUNT W/DIF F immature granulocytes ,absolute 0.02 x10'3 /uL 0.00-0 .05 Not Available [facility] (Lab) [address] [place], [address], 08/07/2022 12:48:22 08/07/19 23 08/07/2022 CBC/C OMPLE TE BLD COUNT W/DIF F nucleated red blood cells 0.0 % -0 Not Available [facility] (Lab) [address] [place], [address], 08/07/2022 12:48:22 08/07/19 23 08/07/2022 CBC/C OMPLE TE BLD COUNT W/DIF F NRBC# 0.00 x10'3 /uL Not Available [facility] (Lab) [address] [place], [address], 08/07/2022 12:48:22 Result Notes None recorded. Problems Name Problem SNOMED Code Status Onset Date Resolution Date Notes Provider Name and Address Organization Details Recorded Time Serum vitamin B12 below reference range 685599211 Active 2022 Keyla Espino APRN [address], [address], [place], [address], Interse 4 08:15:36 Cobalamin deficiency 467374512 Active 2022 Keyla Espino APRN [address], [address], [place], [address], Interse 4 08:15:17 Essential hypertension 28998261 Active 2022 Keyla Espino APRN [address], [address], [place], [address], Interse 4 08:15:21 Chronic sinusitis 91633342 Active 2022 Keyla Espino APRN [address], [address], [place], [address], Interse 4 08:15:12 Sleep apnea 36754702 Active 2022 Keyla Espino APRN [address], [address], [place], [address], Interse 4 08:15:31 Hyperlipidemia 21055366 Active 2022 Keyla Espino APRN [address], [place], [address], Interse 4 08:15:24 Problem Notes None recorded. Medical Equipment None Reported. Allergies No known drug allergies Medications Name Sig Start Date Stop Date Status Note LastModified by Organization Details LastModified Time losartan 50 mg tablet TAKE 1 TABLET BY MOUTH ONCE DAILY active Not Available Not Available No t Available amoxicillin 500 mg capsule 09/12 completed Not Available Not Available Not Available cyanocobala min (vit B-12) 1,000 mcg/mL injection solution Inject 1 mL every month by subcutane ous route. 03/05 completed Not Available Not Available Not Available hydrochloro thiazide 25 mg tablet TAKE 1 TABLET BY MOUTH ONCE DAILY active Not Available Not Available No t Available amoxicillin 875 mg-laure m clavulanate 125 mg tablet 09/12 completed Not Available Not Available Not Available chlorhexidi ne gluconate 0.12 % mouthwash 09/12 completed Not Available Not Available Not Available Vitals Date Recorded Body mass index (BMI) Body height Oxygen saturation Oxygen saturation in Arterial blood by Pulse oximetry Heart rate Body temperature Body weight Systolic blood pressure Diastolic blood pressure Provider Name and Address Organization Details Last Updated DateTime 2 31.3 kg/m2 182.88 cm 98 % 98 % 67 /min 97.4 [degF] 883212. 84 g 130 mm[Hg] 80 mm[Hg] Not Available [facility] 3 00:28:38 Date Recorded Body mass index (BMI) Body height Oxygen saturation Oxygen saturation in Arterial blood by Pulse oximetry Heart rate Body temperature Body weight Systolic blood pressure Diastolic blood pressure Provider Name and Address Organization Details Last Updated DateTime 2 30.8 kg/m2 182.88 cm 98 % 98 % 67 /min 96.7 [degF] 692444. 47 g 140 mm[Hg] 76 mm[Hg] Not Available [facility] 3 00:28:38 Date Recorded Body mass index (BMI) Body height Oxygen saturation Oxygen saturation in Arterial blood by Pulse oximetry Heart rate Body temperature Body weight Systolic blood pressure Diastolic blood pressure Provider Name and Address Organization Details Last Updated DateTime 3 33.1 kg/m2 182.88 cm 97 % 97 % 72 /min 97.6 [degF] 662562. 54 g 126 mm[Hg] 82 mm[Hg] Not Available [facility] 3 00:28:38 Date Recorded Body height Body mass index (BMI) Body weight Body temperature Heart rate Oxygen saturation Oxygen saturation in Arterial blood by Pulse oximetry Systolic blood pressure Diastolic blood pressure Provider Name and Address Organization Details Last Updated DateTime 3 182.88 cm 33.9 kg/m2 516933. 09 g 97.9 [degF] 82 /min 96 % 96 % 116 mm[Hg] 74 mm[Hg] FRANCISCO Alexandra CA - [facility] 3 14:48:55 Social History Question Answer Notes LastModified by Organizat ion Details LastModified Time Tobacco Smoking Status Former Smoker Not Available [facility] 08/22/2022 00:27:18 Do You Wear A Helmet When Biking? No [id number] Information not available 08/22/2022 What Is Your Level Of Caffeine Consumption? Moderate [id number].[id number] Information not available 08/22/2022 In The 14 Days Before Symptom Onset, Have You Had Close Contact With A Laboratory-confi rmed COVID-19 While That Case Was Ill? No [id number].[id number] Information not available 08/22/2022 In The 14 Days Before Symptom Onset, Have You Had Close Contact With A Person Who Is Under Investigation For COVID-19 While That Person Was Ill? No [id number].[id number] Information not available 08/22/2022 What Type Of Diet Are You Following? REGULAR MIGRATION.77105 [id number] Information not available 08/22/2022 What Is The Highest Grade Or Level Of School You Have Completed Or The Highest Degree You Have Received? [id number] MIGRATION.00272 [id number] Information not available 08/22/2022 Have There Been Any Changes To Your Family Or Social Situation? No MIGRATION.96887 [id number] Information not available 08/22/2022 What Is The Fluoride Status Of Your Home? Unknown MIGRATION.35811 [id number] Information not available 08/22/2022 When Did You Quit Smoking? 15+yearssincelastci fainaette MIGRATION.73625 48192 Information not available 08/22/2022 Do You Use Insect Repellent Routinely? No MIGRATION.47917 93935 Information not available 08/22/2022 Where Do You Live? [place]House MIGRATION.80659 07087 Information not available 08/22/2022 What Was The Date Of Your Most Recent Tobacco Screening? 03/05/2023 [email or web address] Information not available 03/05/2023 Do You Have Any Pets? No MIGRATION.35578 56725 Information not available 08/22/2022 What Is Your Relationship Status? Single MIGRATION.40836 24117 Information not available 08/22/2022 Do You Use Your Seat Belt Or Car Seat Routinely? Yes MIGRATION.93383 39692 Information not available 08/22/2022 Do You Have Smoke And Carbon Monoxide Detectors In Your Home? Yes MIGRATION.54764 18459 Information not available 08/22/2022 Are You Passively Exposed To Smoke? No MIGRATION.58568 00214 Information not available 08/22/2022 Are There Any Smokers In Your House? No MIGRATION.89760 73744 Information not available 08/22/2022 Do You Use Sunscreen Routinely? No MIGRATION.52901 48354 Information not available 08/22/2022 Have You Recently Traveled Abroad? No MIGRATION.09657 18045 Information not available 08/22/2022 Do You Have Any Dietary Restrictions? No MIGRATION.52336 19499 Information not available 08/22/2022 Sex: Unknown Functional Status Question Answer Note LastModified by [employer] Details LastModified Time Do you use any illicit or recreational drugs? No MIGRATION.[id number] 026 Information not available 08/22/2022 What is your level of alcohol consumption? 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 Moderate MIGRATION.[id number] 026 Information not available 08/22/2022 Mental Status Question Answer Note LastModified by [employer] Details LastModified Time Do you feel stressed (tense, restless, nervous, or anxious, or unable to sleep at night)? [id number] Information not available 08/22/2022 Family History Relationship Description Onset Age of this Age Resolved Age Notes LastModified by Organization Details LastModified Time Father No current problems or disability [id number] Not available 08/22/2022 00:27:47 Mother No current problems or disability [id number] Not available 08/22/2022 00:27:47 Medical History Condition Response NERVE DISEASE N BLINDNESS N RHEUMATIC FEVER N KIDNEY STONES N BLADDER PROBLEMS N MRSA N OTHER # 1 N POLIO N LUNG DISEASE/DISORDER N HISTORY OF DRUG ABUSE N RADIATION / CHEMOTHERAPY N COPD N Other # 2 N BLOOD DISEASES N EAR OR HEARING PROBLEMS N MUMPS N SHINGLES N BOWEL PROBLEMS N DEPRESSION (INCLUDING POST ) N STROKE/TIA N ULCERS N BENIGN PROSTATIC HYPERPLASIA N MEASLES N HYPOTENSION N MYOCARDIAL INFARCTION N OBESITY N GERD/NAUSEA N ANEURYSM N URINARY/BLADDER/KIDNEY PROBLEMS N CORONARY ARTERY DISEASE (CAD) N ADDICTION CONCERNS N ENDOMETRIOSIS N Impotence N USE OF BLOOD THINNERS N SKIN PROBLEMS N GASTROINTESTINAL DISORDER N PERIPHERAL VASCULAR DISEASE N MUSCLE,JOINT OR BONE PROBLEMS N GASTROINTESTINAL BLEEDING N BLOOD CLOTS N ASTHMA N CATARACTS N ERECTILE DYSFUNCTION N VARICOSITIES N GI PROBLEMS N Low Testosterone N INFERTILITY N AIDS/HIV N CHEMOTHERAPY / RADIATION N LIVER DISEASE N MALE HYPOGONADISM N HYPERTENSION Y Deficiency N TOURETTE'S N ANXIETY DISORDER N BLOOD TRANSFUSION N ANEMIA/BLOOD DISORDER N CHRONIC EAR INFECTIONS N BRONCHITIS N TUBERCULOSIS N GLAUCOMA N FOOT PROBLEM N DIVERTICULITIS N CHICKENPOX N SLEEP APNEA N INFECTIOUS DISEASE N HEART ARRHYTHMIA N PROSTATE N INSOMNIA N HIGH CHOLESTEROL / HYPERLIPIDEMIA N HYPERTHYROIDISM N EYE PROBLEMS N EDEMA N CHRONIC PAIN SYNDROME N HYPOTHYROIDISM N CAROTID BLOCKAGE N CONSTIPATION N BACK / NECK PROBLEMS N HAVE YOU BEEN HOSPITALIZED OR [facility] IN [facility] IN THE PAST YEAR ? N ATHEROSCLEROSIS N BREAST PROBLEMS N DIALYSIS N ECZEMA N OSTEOPOROSIS N ARTHRITIS N NO SIGNIFICANT PAST MEDICAL HISTORY N APPENDICITIS N DIABETES, TYPE N BAD TEETH N ENT N HEARTBURN / REFLUX N AUTISM SPECTRUM DISORDER (ASD) N HEPATITIS / LIVER DISEASE N GOUT N SLEEP DISORDER N ALZHEIMER'S DISEASE N Brain Problems N HERPES N DEMENTIA N HEADACHES/MIGRAINES N SEIZURES/EPILEPSY N VASCULAR DISEASE N PACEMAKER N Blood Disorder N DIZZINESS N HEART DISEASE/HEART PROBLEMS N KIDNEY DISEASE N MULTIPLE SCLEROSIS N CARDIAC ARRHYTHMIA N CANCER: SPECIFY N ATRIAL FIBRILLATION N Gall Stones N PULMONARY EMBOLISM N AUTOIMMUNE DISEASE N Past Encounters Encounter ID Performer Location Encounter Start Date Encounter Closed Date Diagnosis/Indication Diagnosis SNOMED-CT Code Diagnosis ICD10 Code Diagnosis Note [id number] Carisa tobar MD [facility] Internal [place] [address] [facility] [place] [address] 09/12/2021 00:00:00 09/12/2021 13:31:36 [id number] Carisa tobar MD [facility] Internal [place] [address] [place] [address] [address] 01/16/2022 00:00:00 01/16/2022 13:20:58 [id number] Carisa tobar MD [facility] Internal [place] [address] [facility] [place] [address] [place] [address] 08/07/2022 00:00:00 08/07/2022 11:47:31 [id number] Carisa tobar MD [facility] Internal Med [place] [address] [facility] , [place] [address] 03/05/2023 14:38:58 03/05/2023 15:08:02 Essential hypertension 44052328 I10 Chronic sinusitis 543757 00 J32.9 no bothersome to himdecline s any meds or referrals Sleep apnea 45641652 G47 .30 has been on CPAP in the past, did not wear it and sent his machine backRecomm end we get another sleep study-he declinesRi sks of untreated sleep apnea discussed- including heart and lung problems, Hyperlipidemia 17679864 E78.5 no meds, working on lifestyle changes Screening for malignant neoplasm of prostate 034142368 Z12.5 Health Concerns Section Related Observation LastModified by Organization Detai ls LastModified Time None Recorded Concern Status LastModified by Organization Details LastModified Time None Recorded Advance Directives Directive None Recorded Payers Encounter Date Sequence Insurance Name Policy Number Policy Alonso Covered Member ID Alonso Member ID Guarantor Name 03/05/2023 1 [employer] [id number] Hunetr Orozco [id number] Bayron Orozco Notes Date Note Type Note Provider Name and Address Organization Details Recorded Time 03/05/2023 text/html Bayron presents today for follow-up. His blood pressures been well controlled on his current dose of meds. He has been tolerating these without issue. He continues to refuse any sleep studies for sleep apnea. He is not interested in any meds or referrals for his chronic sinus issues. He is due for labs and a PSA. Misti Troncoso, JULIANNE-C [address] [facility], [facility] [address], [place], [address], [facility] 03/05/2023 16:47:50
--- OUTSIDE RECORDS SUMMARY | 2024-11-10 09:23 | XMS_ITS | Encounter Summary ---
Author Organization [facility] Address 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
--- OUTSIDE RECORDS SUMMARY | 2024-11-10 09:23 | XMS_ITS | Encounter Summary ---
Author Organization [facility] Address 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
--- OUTSIDE RECORDS SUMMARY | 2024-11-10 09:23 | XMS_ITS | Clinical Summary ---
Author Organization [facility] Address [address] 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
--- OUTSIDE RECORDS SUMMARY | 2024-11-10 09:23 | XMS_ITS | Clinical Summary ---
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 Gender Identity Not on file Sexual Orientation Not on file Plan of Treatment Health Maintenance Due Date Last Done Comments Hepatitis C Virus (HCV) Screening 1964 TdaP Immunization 1964 Colonoscopy 2009 Colorectal Cancer Screening 2009 Cologuard 2014 Immunochemical Fecal Occult Blood 2014 Pneumococcal Immunization (50+ years) (1 of 1 - PCV) 2014 Zoster Immunization (1 of 2) 2014 PSA Discussion 2019 Influenza Immunization (#1) 02/22/202403/23, 04/20/2020, 03/29/2019, Additional history exists SARS-COV-2 Immunization ( season) 2024 05/28/2021, 10/24/2020, 10/01/2020 Respiratory Syncytial Virus (RSV) Immunization (Adult) (1 - 1-dose 75+ series) 2039 Hepatitis B Immunization Aged Out No longer eligible based on patient's age to complete this topic Meningococcal Immunization (ACWY) Aged Out No longer eligible based on patient's age to complete this topic Pneumococcal Immunization Combined Aged Out No longer eligible based on patient's age to complete this topic Rotavirus Immunization Aged Out No lo nger eligible based on patient's age to complete this topic
--- OUTSIDE RECORDS SUMMARY | 2024-11-10 09:23 | XMS_ITS | Encounter Summary ---
Author Organization [facility] Address 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
--- OUTSIDE RECORDS SUMMARY | 2024-11-10 09:23 | XMS_ITS | Referral Summary ---
Author Organization [address] Address [address] [facility] [address] [place] [address] Care Team Providers Care Data Analysis Manager Name Role Phone Symone Monique NP Primary Care Provider [phone] Encounters Date Type Department Care Team Description 10/11/[address] [facility] Primary Care at [address] [address] Symone Monique NP Medical Question/Miscellaneous 09/29/2024 11:00 AM CDT Office Visit [facility] Primary Care at [address] [address] Symone Monique NP Annual physical exam (Primary Dx); Controlled type 2 diabetes mellitus without complication, without long-term current use of insulin (HCC); Primary hypertension from Last 3 Months Allergies No known active allergies Medications MULTIVITAMIN ORAL Take 1 tablet by mouth daily Active mecobalamin (B12 ACTIVE ORAL) 4 Active cholecalcifero l (D3-2000) 2000 unit capsule 1 capsule (2,000 Units total) 4 Active hydroCHLOROthi azide (HYDRODIURIL) 25 mg tablet Take 1 tablet by mouth once daily 100 tablet 1 5 Active losartan (COZAAR) 50 mg tablet Take 1 tablet by mouth once daily 100 tablet 1 5 Active hydroCHLOROthi azide (HYDRODIURIL) 25 mg tablet Take 1 tablet by mouth once daily 90 tablet 5 11/08/19 25 Discontinued losartan (COZAAR) 50 mg tablet Take 1 tablet by mouth once daily 90 tablet 5 11/08/19 25 Discontinued Active Problems Problem Noted Date Diagnosed Date Controlled type 2 diabetes merlin severino without complication, without long-term current use of insulin 03/31/2024 Assessment & Plan (09/29/2024 11:27 AM CDT): Patient diabetes is diet controlled and is not symptomatic. Patient will continue to eat healthy and follow current health goals. Assessment & Plan (03/31/2024 11:19 AM CDT): New dx, updated labs ordered--has been diet controlled. Previous A1c 6.7. Primary hypertension 09/30/2023 Assessment & Plan (09/29/2024 11:28 AM CDT): Patient is taking Losartan is tolerating medication well. Patient is also taking hydrochlorothiazide is tolerating medication well. Patient will continue on same medication dosage and current health goals. Assessment & Plan (03/31/2024 11:20 AM CDT): BP normal in office, continues Losartan and HCTZ. Updated labs ordered Assessment & Plan (09/30/2023 10:17 AM CDT): BP slightly increased in office today but pt has not taken his BP meds as of yet. Home BP's ranging 120's/80's. Continue Losartan 50 mg and HCTZ 25 mg daily. Updated labs ordered. Chronic sinusitis 03/05/2023 Hyperlipidemia 03/05/2023 Sleep apnea 03/05/2023 Cobalamin deficiency 08/21/2022 Low serum vitamin B12 08/21/2022 Immunizations Immunization Administration Dates Next Due Influenza, Unspecified 03/19/2024 Social History Tobacco Use Types Packs/Day Years Used Date Smoking Tobacco: Former Cigarettes 0.1 1 Cigarillos Passive Smoke Exposure: Never Smokeless Tobacco: Never Tobacco Cessation:Counseling Given: Not Answered Comments:Former cigarette smoker, quit maybe 20 years ago PHQ-2 Answer Date Recorded PHQ-2 Total Score (If total score is 3 or more points, staff should administer the PHQ-9) 0 09/29/2024 Sex and Gender Information Value Date Recorded Sex Assigned at Not on file 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 Gender Identity Male 10/13/2023 1:40 PM CDT Sexual Orientation Straight 10/13/2023 1: 40 PM CDT Last Filed Vital Signs Vital Sign Reading Time Taken Comments Blood Pressure 122/72 09/29/2024 11:04 AM CDT Pulse 77 09/29/2024 11:04 AM CDT Temperature 36.6 C (97.8 F) 09/29/2024 11:04 AM CDT Respiratory Rate 20 09/30/2023 9:43 AM CDT Oxygen Saturation 95% 09/29/2024 11:04 AM CDT Inhaled Oxygen Concentration - - Weight 111.1 kg (245 lb) 09/29/2024 11:04 AM CDT Height 182.9 cm (6') 09/29/2024 11:04 AM CDT Body Mass Index 33.23 09/29/2024 11:04 AM CDT Plan of Treatment Not on file Procedures Procedure Name Priority Date/Time Associated Diagnosis Comments COMPREHENSIVE METABOLIC PANEL Routine 04/09/2024 9:32 AM CDT Primary hypertension HEMOGLOBIN A1C Routine 04/09/2024 9:32 AM CDT Controlled type 2 diabetes mellitus without complication, without long-term current use of insulin (HCC) LIPID PANEL Routine 04/09/2024 9:32 AM CDT Primary hypertension ALBUMIN CREATININE RATIO, URINE Routine 04/09/2024 9:32 AM CDT Controlled type 2 diabetes mellitus without complication, without long-term current use of insulin (HCC) HEPATITIS C ANTIBODY Routine 10/04/2023 9:00 AM CDT Encounter for hepatitis C screening test for low risk patient PSA SCREEN Routine 10/04/2023 9:00 AM CDT Screening PSA (prostate specific antigen) HM COLONOSCOPY Routine 11/22/2014 from Last 3 Months or Most Recently Relevant to Health Maintenance Results * Albumin Creatinine Ratio, Urine (04/09/2024 9:32 AM CDT) Creatinine, ur 217 20 - 320 mg/dL [facility] Microalbumin, ur 1.4 See Note: mg/dL [facility] Comment: Reference Range: Reference Range Not established Microalbumin/creat ratio 6 <30 mg/g creat [facility] Comment: The ADA defines abnormalities in albumin excretion as follows: Albuminuria Category Result (mg/g creatinine) Normal to Mildly increased <30 Moderately increased 30-299 Severely increased > OR = 300 The ADA recommends that at least two of three specimens collected within a 3-6 month period be abnormal before considering a patient to be within a diagnostic category. Urine 04/09/2024 9:32 AM CDT 04/09/2024 9:33 AM CDT us Symone Monique TAP BUILDER LAB URINE ORDERABLES Final Resul t [facility] [address] [place] [address] * (ABNORMAL) Hemoglobin A1c (04/09/2024 9:32 AM CDT) Hgb A1C 6.7(H) <5.7 % of total Hgb [facility] Comment: For someone without known diabetes, a hemoglobin A1c value of 6.5% or greater indicates that they may have diabetes and this should be confirmed with a follow-up test. For someone with known diabetes, a value <7% indicates that their diabetes is well controlled and a value greater than or equal to 7% indicates suboptimal control. A1c targets should be individualized based on duration of diabetes, age, comorbid conditions, and other considerations. Currently, no consensus exists regarding use of hemoglobin A1c for diagnosis of diabetes for children. Blood 04/09/2024 9:32 AM CDT 04/09/2024 9:33 AM CDT us Symone Monique TAP BUILDER LAB BLOOD ORDERABLES Final Resul t Performing Organization Address City/[facility]/ZIP Co de Phone Number ANIBAL [employer] [address] [place] [address] * Lipid panel (04/09/2024 9:32 AM CDT) Cholesterol 161 <200 mg/dL WP [employer] HoldingsSlava tony Lombardo HDL 56 > OR = 40 mg/dL WP [employer] HoldingsSlava tony Lombardo Triglycerides 104 <150 mg/dL Anibal TaquillaAnneSlava tony Lombardo LDL 85 mg/dL (calc) Anibal TaquillaAnneSlava jimenez [facility] Comment: Reference range: <100 Desirable range <100 mg/dL for primary prevention; <70 mg/dL for patients with CHD or diabetic patients with > or = 2 CHD risk factors. LDL-C is now calculated using the Obinna calculation, which is a validated novel method providing better accuracy than the Friedewald equation in the estimation of LDL-C. Song LYNCH et al. JEAN PAUL. 2013;310(19): 5685-7263 (http://education.Mobile Event Guide/faq/PUZ659) Chol/HDL ratio 2.9 <5.0 (calc) Anibal Toygaroo.comSlava tony Lombardo Non-HDL, (LDL+VLDL) 105 <130 mg/dL (calc) [employer]Sl[facility] jimenez [facility] Comment: For patients with diabetes plus 1 major ASCVD risk factor, treating to a non-HDL-C goal of <100 mg/dL (LDL-C of <70 mg/dL) is considered a therapeutic option. Blood 04/09/2024 9:32 AM CDT 04/09/2024 9:33 AM CDT Symone Monique TAP BUILDER LAB BLOOD ORDERABLES Final Resul t Performing Organization Address City/[facility]/ZIP Co de Phone Number ANIBAL [employer] [id number] [place] [address] * (ABNORMAL) Comprehensive metabolic panel (04/09/2024 9:32 AM CDT) Glucose 128(H) 65 - 99 mg/dL [employer] InvestmentsAnneSlava tony Lombardo Comment: Fasting reference interval For someone without known diabetes, a glucose value >125 mg/dL indicates that they may have diabetes and this should be confirmed with a follow-up test. BUN 15 7 - 25 mg/dL Anibal NewtonSlava Lombardo Creatinine 0.94 0.70 - 1.30 mg/dL Anibal NewtonSlava Lombardo eGFR 93 > OR = 60 mL/min/1.7 3m2 Anibal Lombardo BUN/creat ratio SEE NOTE: 6 - 22 (calc) Anibal NewtonSlava Lombardo Comment: Not Reported: BUN and Creatinine are within reference range. Sodium 137 135 - 146 mmol/L Anibal NewtonSlava Lombardo Potassium, pl 4.6 3.5 - 5.3 mmol/L Anibal NewtonSlava Lombardo Chloride 100 98 - 110 mmol/L Anibal NewtonSlava Lombardo CO2 22 20 - 32 mmol/L Anibal NewtonSlava Lombardo Calcium 9.6 8.6 - 10.3 mg/dL Anibal Lombardo Protein, sr 6.8 6.1 - 8.1 g/dL Anibal Lombardo Albumin 4.7 3.6 - 5.1 g/dL Anibal NewtonSlava Lombardo GLOBULIN 2.1 1.9 - 3.7 g/dL (calc) Anibal NewtonSlava Lombardo Alb/glob ratio 2.2 1.0 - 2.5 (calc) Anibal NewtonSlava Lombardo Bilirubin, total 1.0 0.2 - 1.2 mg/dL Anibal NewtonSlava Lombardo Alk phos 34(L) 35 - 144 U/L Anibal NewtonSlava Lombardo AST 28 10 - 35 U/L Anibal NewtonSlava Lombardo ALT (SGPT) 37 9 - 46 U/L Anibal NewtonSlava Lombardo Blood 04/09/2024 9:32 AM CDT 04/09/2024 9:33 AM CDT us Symone Monique NP LAB BLOOD ORDERABLES Final Resul t ANIBAL [facility] Center[facility] [address] [place] [address] * PSA screen (10/04/2023 9:00 AM CDT) PSA 1.04 < OR = 4.00 ng/mL [employer] [facility] Comment: The total PSA value from this assay system is standardized against the WHO standard. The test result will be approximately 20% lower when compared to the equimolar-standardized total PSA (Nila [place]igrant). Comparison of serial PSA results should be interpreted with this fact in mind. This test was performed using the Siemens chemiluminescent method. Values obtained from different assay methods cannot be used interchangeably. PSA levels, regardless of value, should not be interpreted as absolute evidence of the presence or absence of disease. Blood 10/04/2023 9:00 AM CDT 10/04/2023 9:01 AM CDT Narrative [facility] - 10/08/2023 2:16 AM CDT FASTING:NO FASTING: NO us Symone Monique NP LAB BLOOD ORDERABLES Final Resul t Performing Organization Address [facility] de Phone Number [facility] [address] [place] [address] * Hepatitis C antibody Blood (10/04/2023 9:00 AM CDT) Hep C Ab NON-REACTI VE NON-REACT MAINE [facility] Comment: HCV antibody was non-reactive. There is no laboratory evidence of HCV infection. In most cases, no further action is required. However, if recent HCV exposure is suspected, a test for HCV RNA (test code 63943) is suggested. For additional information please refer to http://education.Ibercheck/faq/XLU88z7 (This link is being provided for informational/ educational purposes only.) Blood 10/04/2023 9:00 AM CDT 10/04/2023 9:01 AM CDT Narrative [facility] - 10/08/2023 2:16 AM CDT FASTING:NO FASTING: NO us Symone Monique NP LAB MICROBIOLOGY - GENERAL ORDER NIKOLE Final Result Performing Organization Address [facility] de Phone Number [facility] [address] [place] [address] * COLONOSCOPY (11/22/2014) Scribed Colonoscopy Normal us Historical Provider HEALTH MAINTENANCE Final Result from Last 3 Months or Most Recently Relevant to Health Maintenance Insurance BL CHO[place]F PPO [place] Care Teams Data Analysis Manager Relationship Specialty Start Date End Date Symone Monique NP [address] [place] [address] PCP - General Family Medicine 09/30/23
--- OUTSIDE RECORDS SUMMARY | 2024-11-10 09:23 | XMS_ITS | Encounter Summary ---
Author Organization [facility] Address 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
--- OUTSIDE RECORDS SUMMARY | 2024-11-10 09:23 | XMS_ITS | Encounter Summary ---
Author Organization [facility] Address 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
--- OUTSIDE RECORDS SUMMARY | 2024-11-10 09:23 | XMS_ITS | Clinical Summary ---
Author Organization [facility] [address] Address [address] [facility] [address] [place] [address] Care Team Providers Care Lube Worker Name Role Phone Symone Monique NP Primary Care Provider [phone] Allergies No known active allergies Medications MULTIVITAMIN [...] Date Diagnosed Date Controlled type 2 diabetes m mere without complication, without long-term current use of [...] deficiency 08/21/2022 Low serum vitamin B12 08/21/2022 Encounters Date Type Department Care Team Description 10/11/2024 Telephone [facility] Primary Care at [address] [address] Symone Monique NP Medical Question/Miscellaneous 09/29/2024 11:00 AM CDT Office Visit [facility] Primary Care at [address] [address] Symone Monique NP Annual physical exam (Primary Dx); Controlled type 2 diabetes mellitus without complication, without long-term current use of insulin (HCC); Primary hypertension from Last 3 Months Immunizations Immunization Administration Dates Next Due Influenza, Unspecified 03/19/2024 Surgical History Surgery Date Site/Laterality Comments CLEFT PALATE REPAIR Medical History Medical History Date Comments High blood pressure Family History Medical History Relation Name Comments Hypertension Brother Mateo psp Brother Mateo Hypertension Father Dad Breast cancer Mother Relation Name Status Comments Brother Mateo Alive Father Dad Mother Social History Tobacco Use Types Packs/Day Years [...] on file 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 Gender Identity Male 10/13/2023 1:40 PM CDT Sexual Orientation Straight 10/13/2023 1: 40 PM CDT Obstetrics History Last Filed Vital Signs Vital Sign Reading [...] 09/29/2024 11:04 AM CDT Plan of Treatment Health Maintenance Due Date Last Done Comments Dilated Eye Exam 1964 Foot Exam 1964 DTaP/Tdap/Td Vaccine (1 - Tdap) 1975 Hepatitis B Screening 1982 Pneumococcal vaccine <65 (1 of 2 - PCV) 1983 Zoster Vaccine (1 of 2) 2014 Hemoglobin A1C 10/08/2024 04/09/2024, 11/15/2023, 10/04/2023 Colon Cancer Screening-Colonoscopy 11/29/2024 11/22/2014 Postponed from 07/2024 (Patient declined, but will receive in the future) Albumin Creatinine Ratio, Urine 04/09/2025 04/09/2024 Lipid Panel 04/09/2025 04/09/2024, 10/04/2023 eGFR 04/09/2025 04/09/2024, 10/04/2023 Depression Screening 09/29/2025 09/29/2024, 03/31/2024, 09/30/2023 Regular Well Visit/Exam 18-64 09/29/2025, 09/30/2023 Prostate Cancer Screening-PSA 10/03/2025 10/04/2023 Hepatitis C Screening Completed 10/04/2023 Influenza Vaccine Completed 03/19/2024 Procedures Procedure Name Priority Date/Time Associated Diagnosis [...] CDT 04/09/2024 9:33 AM CDT Symone Monique NP LAB URINE ORDERABLES Final Resul t Performing Organization Address [facility] Co de Phone Number [facility] [address] [facility] [place] [address] * (ABNORMAL) Hemoglobin A1c (04/09/2024 9:32 AM CDT) Hgb A1C 6.7(H) <5.7 % of total Hgb [employer] Lombardo Comment: For someone without known diabetes, [...] ORDERABLES Final Resul t Performing Organization Address City/[facility] Co de Phone Number CEDUJefferson Lombardo [address] [place] [address] * Lipid panel (04/09/2024 9:32 AM CDT) Cholesterol 161 <200 mg/dL Anibal Lombardo HDL 56 > OR = 40 mg/dL Anibal Lombardo Triglycerides 104 <150 mg/dL [facility] LDL 85 mg/dL (calc) [facility] Comment: Reference range: <100 Desirable range <100 mg/dL for primary prevention; <70 mg/dL for patients with CHD or diabetic patients with > or = 2 CHD risk factors. LDL-C is now calculated using the Obinna calculation, which is a validated novel method providing better accuracy than the Friedewald equation in the estimation of LDL-C. Song LNYCH et al. JEAN PAUL. 2013;310(19): 7865-9893 (http://education.Gen3 Partners/faq/VEH098) Chol/HDL ratio 2.9 <5.0 (calc) [employer] tony Lombardo Non-HDL, (LDL+VLDL) 105 <130 mg/dL (calc) [employer] Lombardo Comment: For patients with diabetes plus 1 major ASCVD risk factor, treating to a non-HDL-C goal of <100 mg/dL (LDL-C of <70 mg/dL) is considered a therapeutic option. Blood 04/09/2024 9:32 AM CDT 04/09/2024 9:33 AM CDT Symone Monique NP LAB BLOOD ORDERABLES Final Resul t [employer] [address] [place] [address] * (ABNORMAL) Comprehensive metabolic panel (04/09/2024 9:32 AM CDT) Glucose 128(H) 65 - 99 mg/dL [employer] tony Lombardo Comment: Fasting reference interval For someone without known diabetes, a glucose value >125 mg/dL indicates that they may have diabetes and this should be confirmed with a follow-up test. BUN 15 7 - 25 mg/dL [employer]Slava tony Lombardo Creatinine 0.94 0.70 - 1.30 mg/dL [employer] tony Lombardo eGFR 93 > OR = 60 mL/min/1.7 3m2 [employer] tony Lombardo BUN/creat ratio SEE NOTE: 6 - 22 (calc) [employer] Lombardo Comment: Not Reported: BUN and Creatinine are within reference range. Sodium 137 135 - 146 mmol/L [employer] t[facility] Lombardo Potassium, pl 4.6 3.5 - 5.3 mmol/L [facility] t[facility] Lombardo Chloride 100 98 - 110 mmol/L [employer] tony Lombardo CO2 22 20 - 32 mmol/L [employer] tony Lombardo Calcium 9.6 8.6 - 10.3 mg/dL Anibal [facility] Lombardo Protein, sr 6.8 6.1 - 8.1 g/dL [facility] Albumin 4.7 3.6 - 5.1 g/dL Anibal Newton-S tony Lombardo GLOBULIN 2.1 1.9 - 3.7 g/dL (calc) [facility] Alb/glob ratio 2.2 1.0 - 2.5 (calc) [facility] Lomb[facility] Bilirubin, total 1.0 0.2 - 1.2 mg/dL Anibal [facility] t[facility] Lombardo Alk phos 34(L) 35 - 144 U/L [facility] Lombardo AST 28 10 - 35 U/L Anibal Newton-S tony Lombardo ALT (SGPT) 37 9 - 46 U/L Anibal [facility]S tony Lombardo Blood 04/09/2024 9:32 AM CDT 04/09/2024 9:33 AM CDT us Symone Monique NP LAB BLOOD ORDERABLES Final Resul t [facility] [address] [place] [address] * PSA screen (10/04/2023 9:00 AM CDT) PSA 1.04 < OR = 4.00 ng/mL [employer] [facility] Comment: The total PSA value from this assay system is standardized against the WHO standard. The test result will be approximately 20% lower when compared to the equimolar-standardized total PSA (Nila [place]). Comparison of serial PSA results should be [...] CDT FASTING:NO FASTING: NO us Symone Monique TANK CHARGER LAB BLOOD ORDERABLES Final Resul t Performing Organization Address [facility] Co de Phone Number [facility] [address] [place] [address] * Hepatitis C antibody Blood (10/04/2023 9:00 AM CDT) Hep C Ab NON-REACTI VE NON-REACT MAINE [facility] Comment: HCV antibody was non-reactive. There is no laboratory evidence of HCV infection. In most cases, no further action is required. However, if recent HCV exposure is suspected, a test for HCV RNA (test code 39237) is suggested. For additional information please refer to http://education.Hyperpot/faq/FIW90b4 (This link is being provided for informational/ educational purposes only.) Blood 10/04/2023 9:00 AM CDT 10/04/2023 9:01 AM CDT Narrative [facility] - 10/08/2023 2:16 AM CDT FASTING:NO FASTING: NO Symone Monique TANK CHARGER LAB MICROBIOLOGY - GENERAL ORDER NIKOLE Final Result Performing Organization Address [facility] Co de Phone Number [facility] [address] [place] [address] * HM COLONOSCOPY (11/22/2014) Pathologist [facility] Scribed HM Colonoscopy Normal Historical Provider HEALTH MAINTENANCE Final Result from Last 3 Months or Most Recently Relevant to Health Maintenance Insurance BL CHOICE PRF PPO [place] Care Teams Lube Worker Relationship Specialty Start Date End Date Symone Monique NP [address] [facility] [address] [place] [address] PCP - General Family Medicine 09/30/23
--- OUTSIDE RECORDS SUMMARY | 2024-11-10 09:23 | XMS_ITS | Encounter Summary ---
Author Organization [facility] Address 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
--- NOTE | 2024-11-10 09:24 | ED_ITS ---
HPI - Extremity Injury (Lower) General Chief Complaint: Extremity Injury, Lower Stated Complaint: Right foot swelling Time Seen by Provider: 11/10/24 08:59 Source: patient Mode of arrival: ambulatory Limitations: no limitations History of Present Illness HPI Narrative: Patient is a 59-year-old male who presents the ED with report of right foot swelling and pain. Patient reports over the past few days, he has had swelling in his right dorsal foot and around his 1st MTP. He states the swelling and pain became worse today. He has been using crutches for assistance with walking. He has not taken anything for pain. Denies history of similar pain. Denies any injury. Denies history of gout. Denies fevers. Related Data Allergies Allergy/AdvReac Type Severity Reaction Status Date / Time No Known Allergies Allergy Verified 11/10/24 09:00 Review of Systems 2 Review of Systems: All systems reviewed & are unremarkable except as noted in HPI. All systems reviewed & are unremarkable except as noted in HPI and below PMFSH Family History Family History Father Hypertension Sibling Hypertension Social History Social History Smoking status: Former smoker Smoking end date: 06/23/03 Alcohol intake: current Exam 2 Narrative: GENERAL: Well appearing, obese with BMI of 32.7 P, non-toxic, in no acute distress. HEAD: Normocephalic, atraumatic. RESPIRATORY: Airway patent, respirations nonlabored. CARDIOVASCULAR: Regular rate and rhythm . Pedal pulses intact. MUSCULOSKELETAL: Moves all extremities. No gross deformities. No swelling of lower extremity or calf tenderness. Bunion deformity to R 1st toe. Mild swelling of right dorsal foot with localized erythema around 1st MTP joint. Very minimal warmth. Tenderness to palpation over 1st MTP joint. Tenderness with any movement of 1st toe. Sensation intact. SKIN: Warm, dry, normal color. NEURO: A&O X3. Speech clear. Steady gait. No ataxic movements. PSYCHIATRIC: Appropriate mood and affect. Normal interaction. Course Vital Signs Vital signs: Vital Signs Temperature 97.6 F 11/10/24 08:55 Pulse Rate 74 11/10/24 08:55 Respiratory Rate 18 11/10/24 08:55 Blood Pressure 144/98 H 11/10/24 08:55 Pulse Oximetry 98 11/10/24 08:55 Oxygen Delivery Room Air 11/10/24 08:55 Temperature 97.6 F 11/10/24 08:55 Pulse Rate 64 11/10/24 11:39 Respiratory Rate 16 11/10/24 11:39 Blood Pressure 130/80 11/10/24 11:39 Pulse Oximetry 99 11/10/24 11:39 Oxygen Delivery Room Air 11/10/24 08:55 MDM - Extremity Injury (Lower) MDM Narrative Medical decision making narrative: Patient presented to ED with right foot swelling/1st toe pain. Vital signs are stable upon arrival. Patient neurovascularly intact. X-ray without fracture. Laboratory studies are otherwise reassuring. No leukocytosis. Normal ESR. Minimal elevation of CRP did 2.8. BNP within normal range. Uric acid is 8.0. Suspicious for gout. Feel this is most consistent with patient's clinical picture. He does admit to a daily beer/glass of wine. He is also on hydrochlorothiazide. Additionally he is being worked up for prediabetes. Discussed that these can be aggravating factors for gout. Patient will be discharged on anti-inflammatories. He does have normal kidney function on lab work today. Advised very close follow-up with PCP for further evaluation to discuss medication management, potentially different antihypertensives. Discussed strict return precautions. Patient in agreement with plan. Feels comfortable going home. Discharged in stable condition. Medical Records Attestation: I reviewed the patient's medical records. Lab Data Attestation: I reviewed the patient's lab results. 11/10/24 09:38 11/10/24 09:38 Labs: Lab Results 11/10/24 Range/Units 09:38 WBC 8.0 (4.5-10.0) K/mm3 RBC 5.40 (4.6-6.20) M/mm3 Hgb 15.7 (14.0-18.0) g/dL Hct 47.8 (42.0-52.0) % MCV 88.5 (80-100) fl MCH 29.1 (26-34) pg MCHC 32.8 (32-36) g/dl RDW 13.0 (11.5-14.5) % Plt Count 188 (150-375) k/mm3 MPV 9.1 (7.4-10.4) fl Immature Gran % (Auto) 0.3 (0-0.5) % Neut % (Auto) 71.7 (45.5-73.1) % Lymph % (Auto) 15.2 L (18.3-44.2) % Mineral % (Auto) 10.7 H (2.6-8.5) % Eos % (Auto) 1.6 (0-4.4) % Baso % (Auto) 0.5 (0.2-1.2) % Lymph # (Auto) 1.21 (0.9-3.2) K/mm3 Mineral # (Auto) 0.9 H (0.1-0.6) K/mm3 Eos # (Auto) 0.1 (0-0.3) K/mm3 Baso # (Auto) 0.0 (0.0-0.1) K/mm3 Abs Immat Gran (auto) 0.02 (0.00-0.031) K/mm3 Absolute Neuts (auto) 5.7 (1.3-6.7) K/mm3 Absolute Nucleated RBC 0.000 (0.0-0.012) K/mm3 Nucleated RBC % 0.0 (0.0-0.2) % ESR 6 (0-20) mm/hr Sodium 138 (137-145) mmol/L Potassium 3.9 (3.4-5.0) mmol/L Chloride 104 (98-107) mmol/L Carbon Dioxide 25 (22-30) mmol/L Anion Gap 9 (4-12) mmol/L BUN 16 (9-20) mg/dL Creatinine 0.90 (0.7-1.3) mg/dL Estim Creat Clear Calc 98 ml/min Estimated GFR > 60 (59 - ) Glucose 114 H (65-110) mg/dL Uric Acid 8.0 (3.5-8.5) mg/dL Calcium 9.3 (8.4-10.2) mg/dL C-Reactive Protein 2.8 H (<1.0) mg/dL NT-Pro-B Natriuret Pep < 20 (19.9-100) pg/mL Imaging Data Attestation: I personally reviewed and interpreted this imaging study as follows: Radiologist's impression: ITS Impressions Foot X-Ray 11/10/24 09:50 IMPRESSION: 1. No acute osseous abnormality. 2. Mild hallux valgus with bunion. 3. 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 Discharge Plan Discharge Clinical Impression: Swelling of first metatarsophalangeal (MTP) joint of right foot Patient Disposition: Home Condition: Stable Instructions: Antibiotic Form, Low Purine Diet (ED), Gout (ED), Foot Sprain (ED) Additional Instructions: Your being treated for gout of your right foot. Take naproxen twice daily as prescribed over the next 3-7 days. Recommend elevation of foot whenever able, icing to foot. Utilize RONDA bandage to foot. Avoid foods high in purine, avoid alcohol use. Recommend very close follow up with your primary care doctor within the next 1 week for further evaluation and to discuss blood pressure medications, as thiazide medications can contribute to gout. Return to the ED for worsening or severe pain/swelling/redness, numbness, injury, fevers, or any other symptoms of concern. Patient Language: Turkish Prescriptions: New naproxen 500 mg tablet 500 mg PO BID 7 Days Qty: 14 0RF No Action losartan 50 mg tablet 50 mg PO DAILY Qty: 90 2RF hydrochlorothiazide 25 mg tablet 25 mg PO DAILY Qty: 90 2RF Follow-up/Referrals: Kayden,Symone Schroeder APRN [Primary Care Provider] - Time of Disposition: 11:16
[2024-11-10 09:44] LABS: Basophils Percent Auto 0.5 % (0.2-1.2); Eosinophils Absolute Auto 0.1 K/mm3 (0-0.3); Eosinophils Percent Auto 1.6 % (0-4.4); Hematocrit 47.8 % (42.0-52.0); Hemoglobin 15.7 g/dL (14.0-18.0); Immature Granulocyte Absolute 0.02 K/mm3 (0.00-0.031); Immature Granulocyte Percent A 0.3 % (0-0.5); Lymphocytes Absolute Auto 1.21 K/mm3 (0.9-3.2); Lymphocytes Percent Auto 15.2 % (18.3-44.2); Mean Corpuscular HGB Conc 32.8 g/dl (32-36); Mean Corpuscular Hemoglobin 29.1 pg (26-34); Mean Corpuscular Volume 88.5 fl (80-100); Mean Platelet Volume 9.1 fl (7.4-10.4); Monocytes Absolute Auto 0.9 K/mm3 (0.1-0.6); Monocytes Percent Auto 10.7 % (2.6-8.5); Neutrophils Absolute Auto 5.7 K/mm3 (1.3-6.7); Neutrophils Percent Auto 71.7 % (45.5-73.1); Platelet Count Result 188 k/mm3 (150-375)
[2024-11-10 09:57] LABS: Anion Gap 9 mmol/L (4-12); Blood Urea Nitrogen 16 mg/dL (9-20); Calcium 9.3 mg/dL (8.4-10.2); Carbon Dioxide 25 mmol/L (22-30); Chloride 104 mmol/L (98-107); Estimated CRCL calculation 98 ml/min; Estimated Glomerular Filt Rate > 60; Glucose 114 mg/dL (65-110); Potassium 3.9 mmol/L (3.4-5.0); Sodium 138 mmol/L (137-145)
[2024-11-10 10:03] LABS: NT Pro B Type Natriuretic Pept < 20 pg/mL (19.9-100)
[2024-11-10 10:20] LABS: CRP 2.8 mg/dL (<1.0)
[2024-11-10 10:41] LABS: Erythrocyte Sedimentation Rate 6 mm/hr (0-20)
--- OUTSIDE RECORDS SUMMARY | 2024-11-10 10:59 | XMS_ITS | Encounter Summary ---
Author Organization [facility] Address 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
--- OUTSIDE RECORDS SUMMARY | 2024-11-10 10:59 | XMS_ITS | Referral Summary ---
Author Organization [address] Address [address] [facility] [address] [place] [address] Care Team Providers Care Maintenance Custodian Name Role Phone Symone Monique NP Primary Care Provider [phone] Encounters Date Type Department Care Team Description 10/11/2024 Telephone [facility] Primary Care at [address] [address] Symone Monique NP Medical Question/Miscellaneous 09/29/2024 11:00 AM CDT Office Visit [facility] Medical [facility] Primary Care at [address] [address] Symone Monique NP Annual physical [...] on file Legal Sex Male 10:44 AM PATIENT SCHEDULING COORDINATOR Gender Identity Male 10/13/2023 1:40 PM CDT [...] 04/09/2024 9:33 AM CDT us Symone Monique PULLMAN CLERK LAB URINE ORDERABLES Final Resul t [facility] [address] [place] [address] * (ABNORMAL) Hemoglobin A1c (04/09/2024 9:32 AM [...] 04/09/2024 9:33 AM CDT us Symone Monique PULLMAN CLERK LAB BLOOD ORDERABLES Final Resul t Performing Organization Address City/[facility]/ZIP Co de Phone Number ANIBAL [facility] [address] [place] [address] * Lipid panel (04/09/2024 9:32 AM CDT) Cholesterol 161 <200 mg/dL CuilSlava tony Lombardo HDL 56 > OR = 40 mg/dL CuilSlava tony Lombardo Triglycerides 104 <150 mg/dL Anibal WhenSoonAnneSlava tony Lombardo LDL 85 mg/dL (calc) Anibal WhenSoonAnneSlava jimenez Grupo Comment: Reference range: <100 Desirable range <100 mg/dL for primary prevention; <70 mg/dL for patients with CHD or diabetic patients with > or = 2 CHD risk factors. LDL-C is now calculated using the [place] calculation, which is a validated novel method providing better accuracy than the Friedewald equation in the estimation of LDL-C. Song LYNCH et al. JEAN PAUL. 2013;310(19): 0694-9355 (http://education.Unicorn Production/faq/KXN077) Chol/HDL ratio 2.9 <5.0 (calc) Anibal Beam NetworksSlava tony Lombardo Non-HDL, (LDL+VLDL) 105 <130 mg/dL (calc) [facility]il[facility] jimenez [facility] Comment: For patients with diabetes plus 1 major ASCVD risk factor, treating to a non-HDL-C goal of <100 mg/dL (LDL-C of <70 mg/dL) is considered a therapeutic option. Blood 04/09/2024 9:32 AM CDT 04/09/2024 9:33 AM CDT Symone Monique PULLMAN CLERK LAB BLOOD ORDERABLES Final Resul t Performing Organization Address City/[facility]/ZIP Co de Phone Number ANIBAL [facility] [address] [place] [address] * (ABNORMAL) Comprehensive metabolic panel (04/09/2024 9:32 AM CDT) Glucose 128(H) 65 - 99 mg/dL [facility]Rx PharmaceuticalsAnneSlava tony Lombardo Comment: Fasting reference interval For [...] LAB BLOOD ORDERABLES Final Resul t ANIBAL [facility] Hospital[facility] [address] [place] [address] * PSA screen (10/04/2023 9:00 AM CDT) PSA 1.04 < OR = 4.00 ng/mL [facility] enexa Comment: The total PSA value from this assay system is standardized against the WHO standard. The test result will be approximately 20% lower when compared to the equimolar-standardized total PSA (Nila [place]). Comparison of serial PSA results should be [...] ORDERABLES Final Resul t Performing Organization Address [facility] de Phone Number [facility] [address] [place] [address] * Hepatitis C antibody Blood (10/04/2023 9:00 AM CDT) Hep C Ab NON-REACTI VE NON-REACT MAINE [facility] Comment: HCV antibody was non-reactive. There is no laboratory evidence of HCV infection. In most cases, no further action is required. However, if recent HCV exposure is suspected, a test for HCV RNA (test code 47722) is suggested. For additional information please refer to http://education.AdelaVoice/faq/UKZ75x3 (This link is being provided for informational/ educational purposes only.) Blood 10/04/2023 9:00 AM CDT 10/04/2023 9:01 AM CDT Narrative [facility] - 10/08/2023 2:16 AM CDT FASTING:NO FASTING: NO us Symone Monique NP LAB MICROBIOLOGY - GENERAL ORDER NIKOLE Final Result Performing Organization Address [facility] de Phone Number [facility] [address] [place] [address] * COLONOSCOPY (11/22/2014) Scribed Colonoscopy Normal us Historical Provider HEALTH MAINTENANCE Final Result from Last 3 Months or Most Recently Relevant to Health Maintenance Insurance [employer]F PPO [place] Care Teams Maintenance Custodian Relationship Specialty Start Date End Date Symone Monique NP [address] [place] [address] PCP - General Family Medicine 09/30/23
--- OUTSIDE RECORDS SUMMARY | 2024-11-10 10:59 | XMS_ITS | Encounter Summary ---
Author Organization [facility] Address 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
--- OUTSIDE RECORDS SUMMARY | 2024-11-10 10:59 | XMS_ITS | Clinical Summary ---
Author Organization [facility] Address [address] [facility] [address] Wongn: Epic Prelude ADT [place]SSONYA [address] Care Team Providers Care Lozenge Dough Mixer Name Role Phone Unavailable Primary Care Provider Unavailabl e Social History Tobacco Use Types Packs/Day Years Used Date Smoking Tobacco: Never Assessed Sex and Gender Information Value Date Recorded Sex Assigned at Not on file Legal Sex Male 4:30 AM VINYL HANGER Gender Identity Not on file Sexual Orientation [...]
--- OUTSIDE RECORDS SUMMARY | 2024-11-10 10:59 | XMS_ITS | Clinical Summary ---
Author Organization [facility] [address] Address [address] [facility] [address] [place] [address] Care Team Providers Care Tower Watchman Name Role Phone Symone Monique NP Primary Care Provider [phone] Allergies No known active allergies Medications MULTIVITAMIN [...] Type Department Care Team Description 10/11/2024 Telephone [facility] Medical [facility] Primary Care at [address] [address] Symone Moniuqe NP Medical Question/Miscellaneous 09/29/2024 11:00 AM CDT Office Visit [facility] Medical Group Primary Care at [address] [address] Symone Monique NP Annual physical [...] on file Legal Sex Male 10:44 AM ICE CUTTER Gender Identity Male 10/13/2023 1:40 PM CDT [...] ORDERABLES Final Resul t Performing Organization Address [facility] Co de Phone Number [facility] [address] [facility] [place] [address] * (ABNORMAL) Hemoglobin A1c (04/09/2024 9:32 AM CDT) Hgb A1C 6.7(H) <5.7 % of total Hgb [facility] DigitalYossi Lombardo Comment: For someone without known diabetes, [...] ORDERABLES Final Resul t Performing Organization Address City/[facility] Co de Phone Number Linked Restaurant GroupJefferson Lombardo [address] [place] [address] * Lipid panel (04/09/2024 9:32 AM CDT) [...] Song LYNCH et al. JEAN PAUL. 2013;310(19): 6864-8041 (http://education.Ahandyhand/faq/OUN897) Chol/HDL ratio 2.9 <5.0 (calc) Best Response StrategiesSlava tony Lombardo Non-HDL, (LDL+VLDL) 105 <130 mg/dL (calc) Best Response StrategiesSlava Lombardo Comment: For patients with diabetes plus 1 major ASCVD risk factor, treating to a non-HDL-C goal of <100 mg/dL (LDL-C of <70 mg/dL) is considered a therapeutic option. Blood 04/09/2024 9:32 AM CDT 04/09/2024 9:33 AM CDT Symone Monique NP LAB BLOOD ORDERABLES Final Resul t Brain [employer]unnelgenix TechnologiesMaddy [address] [place] [address] * (ABNORMAL) Comprehensive metabolic panel (04/09/2024 9:32 AM CDT) Glucose 128(H) 65 - 99 mg/dL Best Response StrategiesSlava tony Lombardo Comment: Fasting reference interval For someone without known diabetes, a glucose value >125 mg/dL indicates that they may have diabetes and this should be confirmed with a follow-up test. BUN 15 7 - 25 mg/dL Best Response StrategiesSlava tony Lombardo Creatinine 0.94 0.70 - 1.30 mg/dL Best Response StrategiesS tony Lombardo eGFR 93 > OR = 60 mL/min/1.7 3m2 [email or web address] tony Lombardo BUN/creat ratio SEE NOTE: 6 - 22 (calc) Best Response StrategiesSlava Lombardo Comment: Not Reported: BUN and Creatinine are within reference range. Sodium 137 135 - 146 mmol/L Best Response StrategiesS tony Lombardo Potassium, pl 4.6 3.5 - 5.3 mmol/L Best Response StrategiesS tony Lombardo Chloride 100 98 - 110 mmol/L Best Response Strategies tony Lombardo CO2 22 20 - 32 mmol/L [employer] tony Lombardo Calcium 9.6 8.6 - 10.3 mg/dL Anibal [employer]-[facility] tony Lombardo Protein, sr 6.8 6.1 - 8.1 g/dL [facility] Lombardo Albumin 4.7 3.6 - 5.1 g/dL Anibal [facility]S tony Lombardo GLOBULIN 2.1 1.9 - 3.7 g/dL (calc) [facility] Lombardo Alb/glob ratio 2.2 1.0 - 2.5 (calc) [facility] Lombardo Bilirubin, total 1.0 0.2 - 1.2 mg/dL Anibal [employer]S tony Lombardo Alk phos 34(L) 35 - 144 U/L [facility] Lombardo AST 28 10 - 35 U/L Anibal [facility]-S tony Lombardo ALT (SGPT) 37 9 - 46 U/L An[facility] [employer]-S tony Lombardo Blood 04/09/2024 9:32 AM CDT 04/09/2024 9:33 AM CDT us Symone Monique NP LAB BLOOD ORDERABLES Final Resul t [facility]AL [facility] [address] [place] [address] * PSA screen (10/04/2023 9:00 AM CDT) PSA 1.04 < OR = 4.00 ng/mL [facility] Comment: The total PSA value from this assay system is standardized against the WHO standard. The test result will be approximately 20% lower when compared to the equimolar-standardized total PSA (Nila [place]). Comparison of serial PSA results should be [...] CDT FASTING:NO FASTING: NO us Symone Monique LOADER OPERATOR/GROUND LEADER LAB BLOOD ORDERABLES Final Resul t Performing Organization Address [facility] Co de Phone Number [facility] [address] [place] [address] * Hepatitis C antibody Blood (10/04/2023 9:00 AM CDT) Hep C Ab NON-REACTI VE NON-REACT MAINE [facility] Comment: HCV antibody was non-reactive. There is no laboratory evidence of HCV infection. In most cases, no further action is required. However, if recent HCV exposure is suspected, a test for HCV RNA (test code 86900) is suggested. For additional information please refer to http://education.SSN Funding/faq/ACN63p3 (This link is being provided for informational/ educational purposes only.) Blood 10/04/2023 9:00 AM CDT 10/04/2023 9:01 AM CDT Narrative [facility] - 10/08/2023 2:16 AM CDT FASTING:NO FASTING: NO Symone Monique LOADER OPERATOR/GROUND LEADER LAB MICROBIOLOGY - GENERAL ORDER NIKOLE Final Result Performing Organization Address [facility] Co de Phone Number [facility] [address] [place] [address] * HM COLONOSCOPY (11/22/2014) Pathologist [facility] Scribed HM Colonoscopy Normal Historical Provider HEALTH MAINTENANCE Final Result from Last 3 Months or Most Recently Relevant to Health Maintenance Insurance [employer] [place]F PPO [place] Care Teams Tower Watchman Relationship Specialty Start Date End Date Symone Monique NP [address] [facility] [address] [place] [address] PCP - General Family Medicine 09/30/23
--- OUTSIDE RECORDS SUMMARY | 2024-11-10 10:59 | XMS_ITS | Encounter Summary ---
Author Organization [facility] Address 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
--- OUTSIDE RECORDS SUMMARY | 2024-11-10 10:59 | XMS_ITS | Encounter Summary ---
Author Organization [facility] Address [address] [place] [address] Care Team Providers Care Qa Test Analyst Name Role Phone Unavailable Primary Care Provider Unavailabl e Encounter Details Date Type Department Care Team (Late st Contact Info) Description 08/02/1999 Outpatient Historical [facility] Primary Care - [address] [place] [address] Jose Carlin, DO NO ADDRESS ON FILE Social History Tobacco Use Types Packs/Day Years Used Date Smoking Tobacco: Never Assessed Sex and Gender Information Value Date Recorded Sex Assigned at Not on file Legal Sex Male 4:30 AM CODE NUMBER STAMPER Gender Identity Not on file Sexual Orientation Not on file documented as of this encounter Plan of Treatment Not on file documented as of this encounter Visit Diagnoses Not on filedocumented in this encounter
--- OUTSIDE RECORDS SUMMARY | 2024-11-10 10:59 | XMS_ITS | Clinical Summary ---
Author Organization [facility] Care Team Providers Care Barrel Racer Name Role Phone Unavailable Primary Care Provider Unavailabl e Social History Tobacco Use Types Packs/Day Years Used Date Smoking Tobacco: Never Assessed Sex and Gender Information Value Date Recorded Sex Assigned at Not on file Legal Sex Male 8:49 AM TEST DECK SUPERVISOR Gender Identity Not on file Sexual Orientation [...]
--- OUTSIDE RECORDS SUMMARY | 2024-11-10 10:59 | XMS_ITS | Encounter Summary ---
Author Organization [facility] Address 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
--- OUTSIDE RECORDS SUMMARY | 2024-11-10 10:59 | XMS_ITS | Encounter Summary ---
Author Organization [facility] Address 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
[2024-11-10] MEDS: KETOROLAC (*BKC) 60 MG/2 ML VIAL IM (11:34)
[2024-11-10 11:39] VITALS: BP 130/80; PULSE 64; RESP 16; O2SAT 99
== END 2024-11-10 11:41 | disposition home or self-care (01) ==
PROVIDERS: Emergency Provider Physician Assistant; PCP Nurse Practitioner Family
DX: M25.474 Effusion, right foot (principal); M20.11 Hallux valgus (acquired), right foot; M21.611 Bunion of right foot; Z87.891 Personal history of nicotine dependence
CPT/HCPCS: 36415; 73630; 80048; 83880; 84550; 85025; 85652; 86140; 96372; 99283; J1885